=== PATIENT | male | born 1965 | race Two or more races ===

== ENCOUNTER 2017-12-04 20:12 | Inpatient (IN) | payer MEDICAID, OTHER ==
[~2017-12-04] VITALS: Ht 195.6 cm; Wt 82.8 kg
[2017-12-04 21:26] LABS: Basophils # (auto) 0 uL; Basophils % (auto) 0.3 % (0.0-2.0); Eosinophils # (auto) 0 uL; Eosinophils % (auto) 0.2 % (0.0-7.0); Lymphocytes # (auto) 0.7 uL
[2017-12-04 21:27] LABS: Hemoglobin 11.9 g/dL (13.5-17.5); Mean Corpuscular Hemoglobin 24.7 pg (28.0-32.0); Mean Corpuscular Hgb Conc. 32.9 g/dL (32.0-36.0); Mean Corpuscular Volume 74.9 fL (80.0-100.0); Monocytes # (auto) 1.2 uL; Monocytes % (auto) 9.8 % (0.0-12.0); Neutrophils # (auto) 10.4 uL; Neutrophils % (auto) 83.7 % (37.0-80.0); Platelet Count (auto) 653 10^3/uL (140-450); Red Blood Cells 4.81 10^6/uL (4.5-5.90); Red Cell Distribution Width 16.9 % (11.8-14.3); White Blood Cell 12.4 10^3/uL (4.4-10.8)
[2017-12-04 21:40] LABS: INR 0.94 (0.9-1.15); Partial Thromboplastin Time 33.8 sec (23.78-33.04); Prothrombin Time 10.1 sec (9.27-12.13)
[2017-12-04 21:53] LABS: Albumin 2.3 g/dL (3.4-5.0); BUN/Creatinine Ratio 30.2; Bilirubin, Total 0.3 mg/dL (0.2-1.0); Calcium 8.5 mg/dL (8.5-10.1); Potassium 5.5 mmol/L (3.5-5.1)
[2017-12-04] MEDS ORDERED: ONDANSETRON HCL 4 MG/2 ML VIAL IV ONE (22:30)
[2017-12-04] MEDS ORDERED: MORPHINE SULFATE 4 MG/ML SYR/VIAL IV ONE (22:30)
[2017-12-04 22:58] LABS: Amylase 41 U/L (25-115); Lipase 85 U/L (73-393)
[2017-12-04] MEDS ORDERED: LEVOFLOXACIN 750MG 150 ML IV ONE (23:15)
[2017-12-05] VITALS (7 sets, daily range): BP systolic 117–132; BP diastolic 88–97
[2017-12-05] MEDS: ONDANSETRON HCL 4 MG/2 ML VIAL IV PRN ×4 (03:43→21:23)
[2017-12-05] MEDS: MORPHINE SULFATE 4 MG/ML SYR/VIAL IV PRN ×4 (03:43→21:23)
[2017-12-05] MEDS ORDERED: cefTRIAXone 1GM/10ml IVPUSH 10 ML IV SCH ×2 (05:00→09:00)
[2017-12-05] MEDS ORDERED: cefTRIAXone 1GM/10ml IVPUSH 10 ML IV ONE (05:00)
[2017-12-05] MEDS ORDERED: AZITHROMYCIN 500MG/ 250ML 250 ML IV ONE (05:00)
[2017-12-05 05:59] LABS: Urine Amorphous Crystal FEW /hpf (None Seen); Urine Bacteria FEW /hpf (None Seen); Urine Blood Negative /uL (Negative); Urine Hyaline Cast FEW /lpf (0 - 2); Urine Mucus FEW (None Seen); Urine WBC 1 /hpf (0 - 3)
[2017-12-05 06:04] LABS: Amphetamine Screen, Urine NEGATIVE (NEGATIVE); Barbiturate Scree,Urine NEGATIVE (NEGATIVE); Benzodiazephine Screen, Urine NEGATIVE (NEGATIVE); Cannabinoid Screen, Urine NEGATIVE (NEGATIVE); Cocaine Screen, Urine NEGATIVE (NEGATIVE); Opiate Scree,Urine POSITIVE (NEGATIVE); Phencyclidine Screen, Urine NEGATIVE (NEGATIVE)
[2017-12-05] MEDS ORDERED: IBUPROFEN 600 MG TAB PO SCH (10:00)
[2017-12-05] MEDS ORDERED: PANTOPRAZOLE 40 MG/10 ML VIAL IV SCH (10:00)
[2017-12-05 11:19] LABS: Basophils # (auto) 0 uL; Eosinophils # (auto) 0 uL; Hemoglobin 11.3 g/dL (13.5-17.5); Neutrophils % (auto) 86.3 % (37.0-80.0); Red Blood Cells 4.71 10^6/uL (4.5-5.90); White Blood Cell 11.8 10^3/uL (4.4-10.8)
[2017-12-05 11:21] LABS: Basophils % (auto) 0.4 % (0.0-2.0); Eosinophils % (auto) 0.3 % (0.0-7.0); Hematocrit 35.1 % (41.0-53.0); Lymphocytes # (auto) 0.5 uL; Lymphocytes % (auto) 4.6 % (10.0-50.0); Mean Corpuscular Hemoglobin 23.9 pg (28.0-32.0); Mean Corpuscular Hgb Conc. 32.2 g/dL (32.0-36.0); Mean Corpuscular Volume 74.4 fL (80.0-100.0); Monocytes % (auto) 8.4 % (0.0-12.0); Neutrophils # (auto) 10.1 uL; Platelet Count (auto) 631 10^3/uL (140-450)
[2017-12-05 11:39] LABS: BUN/Creatinine Ratio 29.6; Calcium 8.2 mg/dL (8.5-10.1); Potassium 5.2 mmol/L (3.5-5.1)
[2017-12-05] MEDS ORDERED: PRO10T PO (13:44)
[2017-12-05] MEDS ORDERED: PANT40TA2 PO (13:44)
[2017-12-05] MEDS ORDERED: ONDA-143 PO (13:44)
[2017-12-05] MEDS ORDERED: BENA5TAB5 PO (13:44)
[2017-12-05] MEDS ORDERED: MORPHINE SULFATE 4 MG/ML SYR/VIAL IV PRN (14:15)
[2017-12-05] MEDS ORDERED: ALBUTEROL SULF 2.5 MG/0.5ML(0.5%) NEB SOLN NEB PRN (14:15)
[2017-12-05] MEDS ORDERED: SODIUM POLYSTYRENE SULF 15GM/60ML SUSP PO ONE (14:15)
[2017-12-05] MEDS ORDERED: LORazepam 0.5 MG TAB PO PRN (14:15)
[2017-12-05] MEDS: ALBUTEROL SULF 2.5 MG/0.5ML(0.5%) NEB SOLN NEB SCH (19:44)
[2017-12-05] MEDS: PANTOPRAZOLE 40 MG/10 ML VIAL IV SCH (21:28)
[2017-12-06] MEDS: TEMAZEPAM 15 MG CAP PO PRN (00:04)
[2017-12-06] MEDS: MORPHINE SULFATE 4 MG/ML SYR/VIAL IV PRN ×3 (02:40→11:08)
[2017-12-06] MEDS: ONDANSETRON HCL 4 MG/2 ML VIAL IV PRN ×3 (02:40→11:08)
[2017-12-06 04:46] VITALS: BP 125/95
[2017-12-06] MEDS: ALBUTEROL SULF 2.5 MG/0.5ML(0.5%) NEB SOLN NEB SCH ×3 (07:03→18:00)
[2017-12-06 08:30] VITALS: BP 125/97
[2017-12-06] MEDS: AZITHROMYCIN 500MG/ 250ML 250 ML IV SCH (10:27)
[2017-12-06] MEDS: cefTRIAXone 1GM/10ml IVPUSH 10 ML IV SCH (10:28)
[2017-12-06] MEDS: PANTOPRAZOLE 40 MG/10 ML VIAL IV SCH ×2 (10:28→21:38)
[2017-12-06 11:54] VITALS: BP 129/97
[2017-12-06 16:46] VITALS: BP 107/76
[2017-12-06 21:40] VITALS: BP 117/77
[2017-12-06] MEDS ORDERED: LACTULOSE 20Gm/30ML SOLN PO ONE (23:15)
[2017-12-07] MEDS: TEMAZEPAM 15 MG CAP PO PRN (00:17)
[2017-12-07 05:18] VITALS: BP 108/74
[2017-12-07] MEDS: ALBUTEROL SULF 2.5 MG/0.5ML(0.5%) NEB SOLN NEB SCH ×3 (05:59→11:57)
[2017-12-07 06:06] LABS: Hematocrit 35.9 % (41.0-53.0); Hemoglobin 11.9 g/dL (13.5-17.5); Mean Corpuscular Hemoglobin 24.6 pg (28.0-32.0); Mean Corpuscular Hgb Conc. 33.1 g/dL (32.0-36.0); Mean Corpuscular Volume 74.4 fL (80.0-100.0); Red Blood Cells 4.82 10^6/uL (4.5-5.90); White Blood Cell 11.6 10^3/uL (4.4-10.8)
[2017-12-07 06:11] LABS: Platelet Count (auto) 648 10^3/uL (140-450)
[2017-12-07 06:13] LABS: Basophils % (manual) 0 (0.0-2.0); Blast Cells 0; Promyelocytes % 0; Reactive Lymphocytes 0
[2017-12-07 06:18] LABS: Albumin 1.7 g/dL (3.4-5.0); Calcium 8.1 mg/dL (8.5-10.1); Magnesium 2.5 mg/dL (1.6-2.6); Potassium 5.3 mmol/L (3.5-5.1)
[2017-12-07 06:21] LABS: Bilirubin, Total 0.4 mg/dL (0.2-1.0)
[2017-12-07 06:59] LABS: Band Neutrophils % (manual) 1; Eosinophils % (manual) 0 (0-7); Lymphocytes % (manual) 10 (10.0-50.0); Metamyelocytes % 2; Monocytes % (manual) 8 (0-12); Myelocytes % 1
[2017-12-07] MEDS: ONDANSETRON HCL 4 MG/2 ML VIAL IV PRN ×2 (08:10→12:37)
[2017-12-07] MEDS: MORPHINE SULFATE 4 MG/ML SYR/VIAL IV PRN ×2 (08:11→12:38)
[2017-12-07 08:57] VITALS: BP 117/84
[2017-12-07] MEDS: PANTOPRAZOLE 40 MG/10 ML VIAL IV SCH (10:07)
[2017-12-07] MEDS: cefTRIAXone 1GM/10ml IVPUSH 10 ML IV SCH (10:08)
[2017-12-07] MEDS: AZITHROMYCIN 500MG/ 250ML 250 ML IV SCH (10:08)
[2017-12-07] MEDS ORDERED: SODIUM POLYSTYRENE SULF 15GM/60ML SUSP PO ONE (10:15)
[2017-12-07 13:58] VITALS: BP 112/89
[2017-12-07 16:43] VITALS: BP 115/86
== END 2017-12-07 17:09 | disposition home or self-care (01) | DRG 280 ==
LOC: EDBD 20:12 → ER 20:15 → OVERFLOW 20:16 → WEST WING 12-05 04:51
PROVIDERS: ADMIT Nurse Practitioner Family; ATTEND Internal Medicine
PROC: 0W9G3ZZ Drainage of Peritoneal Cavity, Percutaneous Approach (ICD-10-PCS; principal; 2017-12-06)
DX: K70.31 Alcoholic cirrhosis of liver with ascites (principal); E43 Unspecified severe protein-calorie malnutrition; K92.0 Hematemesis; N17.9 Acute kidney failure, unspecified; J18.1 Lobar pneumonia, unspecified organism; C15.9 Malignant neoplasm of esophagus, unspecified; E87.1 Hypo-osmolality and hyponatremia; E87.5 Hyperkalemia; D64.9 Anemia, unspecified; D72.829 Elevated white blood cell count, unspecified; I10 Essential (primary) hypertension; Z82.49 Family history of ischemic heart disease and other diseases of the circulatory system; Z85.01 Personal history of malignant neoplasm of esophagus; Z68.21 Body mass index [BMI] 21.0-21.9, adult
CPT/HCPCS: 10022; 36415; 49083; 71045; 74176; 76705; 76942; 80048; 80053; 80307; 81001; 82140; 82150; 83690; 83735; 83880; 84484; 85007; 85025; 85027; 85610; 85730; 87040; 87070; 87081; 87205; 93005; 94640; 96365; 96367; 96375; C9113; J0696; J1956; J2405